=== PATIENT | female | born 1945 | race Caucasian/White ===

== ENCOUNTER 2019-02-11 20:11 | Emergency (ER) | payer MEDICARE, OTHER ==
[~2019-02-11] VITALS: Ht 170.2 cm; Wt 86.2 kg
[~2019-02-11 20:11] MED LIST: BIOTIN5000 MCG PO; Calcium Carbon500 MG PO; Cipro500 MG PO; FLAX PO; Flonase 0.05% N16 GM; LEVSOD100 PO; MELATONIN5 M1 PO; Pyridium200 MG PO; Refresh Plus1 EACH BOTHEARS; VITAMIN D5000 UNIT PO
[2019-02-11 21:03] LABS: BASOPHILS ABSOLUTE AUTO 0.04 K/mm3 (0.00-0.23); BASOPHILS PERCENT AUTO 0 % (0-2); EOSINOPHILS ABSOLUTE AUTO 0.16 K/mm3 (0.00-0.68); EOSINOPHILS PERCENT AUTO 2 % (0-6); Hemoglobin 11.5 g/dL (11.5-16.0); IMMATURE GRAN ABSOLUTE AUTO 0.03 K/mm3 (0.00-0.10); IMMATURE GRAN PERCENT AUTO 0 % (0-1); LYMPHOCYTES ABSOLUTE AUTO 2.94 K/mm3 (0.84-5.20); LYMPHOCYTES PERCENT AUTO 31 % (21-46); MONOCYTES ABSOLUTE AUTO 0.76 K/mm3 (0.16-1.47); MONOCYTES PERCENT AUTO 8 % (4-13); Mean Corpuscular HGB 32.1 pg (26.0-34.0); Mean Corpuscular HGB Conc 32.9 g/dL (31.5-36.5); Mean Corpuscular Volume 98 fL (80-100); Mean Platelet Volume 11.8 fL (9.1-12.4); NEUTROPHILS ABSOLUTE AUTO 5.65 K/mm3 (1.96-9.15); NEUTROPHILS PERCENT AUTO 59 % (41-73); Platelet Count 220 K/mm3 (150-400); RDW Coefficient Variation 14.1 % (11.7-14.2); RDW Standard Deviation 51.1 fL (35.1-46.3); Red Blood Cell Count 3.58 M/mm3 (3.80-5.20); White Blood Cell Count 9.58 K/mm3 (4.00-11.30)
[2019-02-11 21:19] LABS: Alanine Aminotransfer (ALT/SGP 24 U/L (12-78); Albumin, Blood 3.3 g/dL (3.4-5.0); Albumin/Globulin Ratio 1.1 (0.8-1.8); Alk Phos 50 U/L (50-136); Anion Gap 12 mmol/L (6-16); Aspartate Aminotrans (AST/SGOT 23 U/L (12-37); Bilirubin, Total 0.3 mg/dL (0.1-1.0); Blood Urea Nitrogen 26 mg/dL (8-24); Bun/Creatinine Ratio 31.9 (12.0-20.0); CO2, Blood 22 mmol/L (21-32); Calcium, Blood 8.7 mg/dL (8.5-10.1); Chloride, Blood 106 mmol/L (98-108); Creatinine, Blood 0.82 mg/dL (0.40-1.00); Ethanol (Alcohol), Blood, Med 68 mg/dL; Globulin, Blood 2.9 g/dL (2.2-4.0); Glomerular Filtration Rate >60 (60-); Glucose, Blood 116 mg/dL (70-99); Potassium, Blood 3.3 mmol/L (3.5-5.5); Sodium, Blood 140 mmol/L (136-145); Total Protein, Blood 6.2 g/dL (6.4-8.2); Troponin I 0.028 ng/mL (0.000-0.040)
== END 2019-02-11 23:51 | disposition home or self-care (01) ==
LOC: ER 20:11
PROVIDERS: Emergency Medicine
DX: E86.0 Dehydration (principal); G93.40 Encephalopathy, unspecified; Z88.2 Allergy status to sulfonamides; Z88.5 Allergy status to narcotic agent; Z79.899 Other long term (current) drug therapy
CPT/HCPCS: 36415; 80053; 84484; 85025; 93005; 93010; 96360; 99284-25; G0480; J7120

== ENCOUNTER 2019-02-17 08:56 | Day surgery (SDC) | payer MEDICARE, OTHER ==
[~2019-02-17] VITALS: Ht 157.5 cm; Wt 75.6 kg
== END 2019-02-17 11:26 | disposition home or self-care (01) ==
LOC: ORSCSDS 08:56
PROVIDERS: Surgery
PROC: 0DBK8ZX Excision of Ascending Colon, Via Natural or Artificial Opening Endoscopic, Diagnostic (ICD-10-PCS; principal; 2019-02-17 10:15)
DX: Z12.11 Encounter for screening for malignant neoplasm of colon (principal); D12.2 Benign neoplasm of ascending colon; K57.30 Diverticulosis of large intestine without perforation or abscess without bleeding; I10 Essential (primary) hypertension; E78.5 Hyperlipidemia, unspecified; F32.9 Major depressive disorder, single episode, unspecified; E03.9 Hypothyroidism, unspecified; D64.9 Anemia, unspecified; Z79.899 Other long term (current) drug therapy
CPT/HCPCS: 88305; J2704; J7120

== ENCOUNTER → 2020-09-18 | Outpatient (CLI) | payer MEDICARE ==
[2020-09-18 17:05] LABS: Source, Urine Clean Catch
[2020-09-18 17:11] LABS: Appearance, Urine Hazy (Clear); Color, Urine Yellow (P-Yellow); Leukocyte Esterase, Urine 2+ (Neg); Specific Gravity, Urine 1.005 (1.003-1.022)
[2020-09-18 17:12] LABS: Bilirubin, Urine Neg (Neg); Blood, Urine 1+ (Neg); Glucose Qualitative, Urine Neg (Normal); Ketones, Urine Neg (Neg); Nitrite, Urine Neg (Neg); Protein, Urine Neg (Neg); Urobilinogen, Urine NORM (Normal)
[2020-09-18 17:21] LABS: Bacteria Few /hpf; Squamous Epithelial Cells Few /hpf (Few)
== END | disposition home or self-care (01) ==
LOC: LAB EV 17:02 → LAB SHORT 17:02
PROVIDERS: Family Medicine
DX: R30.9 Painful micturition, unspecified (principal)
CPT/HCPCS: 81001; 87086

== ENCOUNTER 2021-07-04 09:11 | Day surgery (SDC) | payer MEDICARE ==
[~2021-07-04] VITALS: Ht 160 cm; Wt 76.2 kg
[2021-07-04] MEDS ORDERED: ZOLP10 PO (09:45)
--- NOTE | 2021-07-04 10:40 | NUR ---
07/04/21 1040 Estefania Lerma BUPIVACAINE 0.5% 50 MLS MIXED WITH 0.25 ML EPI TO CONTSITUTE BUPIVACAINE 0.5% 1:200,000 PER ORDER FOR INJECTION AT OPSITE BY DR MOSELEY. 30 MLS INJECTED.
== END 2021-07-04 11:55 | disposition home or self-care (01) ==
LOC: ORSCSDS 09:11
DX: M25.372 Other instability, left ankle (principal); S86.30 Unspecified injury of muscle(s) and tendon(s) of peroneal muscle group at lower leg level; D17.24 Benign lipomatous neoplasm of skin and subcutaneous tissue of left leg; E03.9 Hypothyroidism, unspecified; F41.9 Anxiety disorder, unspecified; Z79.899 Other long term (current) drug therapy
CPT/HCPCS: C1713; J0171; J0690; J1100; J1885; J2250; J2405; J2704; J3010; J7120

== ENCOUNTER 2022-06-22 11:17 | Day surgery (SDC) | payer MEDICARE ==
[~2022-06-22] VITALS: Ht 162.6 cm; Wt 76.4 kg
[~2022-06-22 11:17] MED LIST changes: +ZOLP10 PO
--- NOTE | 2022-06-22 13:10 | NUR ---
06/22/22 1310 Estefania Lerma ROPIVACAINE 0.5% 30 MLS MIXED WITH EPI 0.15 ML (1MG/ML) PER ORDER TO MAKE ROPIVACAINE 0.5% 1:200,000 FOR INJECTION AT OPSITE BY DR MOSELEY. MANAGEMENT AWARE OF RNS MIXING MEDICATION.
== END 2022-06-22 15:49 | disposition home or self-care (01) ==
LOC: ORSCSDS 11:17
PROVIDERS: Podiatrist Foot & Ankle Surgery
PROC: 0QBL0ZZ Excision of Right Tarsal, Open Approach (ICD-10-PCS; principal; 2022-06-22 12:30)
PROC: 0JBQ0ZZ Excision of Right Foot Subcutaneous Tissue and Fascia, Open Approach (ICD-10-PCS; principal; 2022-06-22 12:30)
PROC: 0LQN0ZZ Repair Right Lower Leg Tendon, Open Approach (ICD-10-PCS; principal; 2022-06-22 12:30)
DX: M76.71 Peroneal tendinitis, right leg (principal); D17.79 Benign lipomatous neoplasm of other sites; E78.5 Hyperlipidemia, unspecified; E03.9 Hypothyroidism, unspecified; M19.90 Unspecified osteoarthritis, unspecified site; Z79.899 Other long term (current) drug therapy
CPT/HCPCS: C1713; C1769; J0171; J0690; J1100; J2405; J2704; J2795; J3010; J7120

== ENCOUNTER → 2023-05-12 | Outpatient (CLI) | payer MEDICARE | LOC: LAB 11:15 → LAB SHORT 11:15 | DX: R30.0 Dysuria (principal) | CPT/HCPCS: 87077; 87086; 87186 ==

== ENCOUNTER 2023-07-27 13:46 | Day surgery (SDC) | payer MEDICARE ==
[~2023-07-27] VITALS: Ht 160 cm; Wt 76.2 kg
[~2023-07-27 13:46] MED LIST changes: +GALZIN50 MG; +LORA10ER
[2023-07-27 15:42] VITALS: BP 123/75
== END 2023-07-27 16:00 | disposition home or self-care (01) ==
LOC: ORSCSDS 13:46
PROVIDERS: Surgery
PROC: 0DBH8ZX Excision of Cecum, Via Natural or Artificial Opening Endoscopic, Diagnostic (ICD-10-PCS; principal; 2023-07-27 15:00)
DX: Z12.11 Encounter for screening for malignant neoplasm of colon (principal); K63.5 Polyp of colon; K57.30 Diverticulosis of large intestine without perforation or abscess without bleeding; Z86.010 Personal history of colon polyps; E07.9 Disorder of thyroid, unspecified; Z79.899 Other long term (current) drug therapy
CPT/HCPCS: 88305; J2704; J7120